=== PATIENT | male | born 1955 | race Caucasian/White ===

== ENCOUNTER → 2016-06-04 | Outpatient (CLI) | payer BC, MEDICAID ==
[~2016-06-04] MED LIST: AUGM500T7 PO; BACT800T5 PO; CIPR-9 PO; CLIN1CAP5 PO; GABA300C5 PO; GLIP10TA6 PO; LISI-515 PO; LORA1TAB12 PO; LOTE20TA PO; METF1000 PO; MULTTAB67 PO; MUPI2OIN TOPICAL; PERC5TAB12 PO; PRAV80TA2 PO; TAMS5CAP PO; VITA400C28
[2016-06-04 11:01] LABS: BASOPHIL % 0.6 % (0.0-2.0); EOSINOPHIL # 0.1 TH/MM3 (0-0.4); EOSINOPHIL % 1.3 % (0.0-4.0); HEMATOCRIT 38.8 % (39.0-51.0); HEMO FLAGS DIFF FINAL; LYMPH % 34.5 % (9.0-44.0); LYMPHOCYTE # 2.4 TH/MM3 (1.0-4.8); MEAN CELL VOLUME 92.1 FL (80.0-100.0); MEAN CORPUSCULAR HEMOGLOBIN 31.6 PG (27.0-34.0); MEAN CORPUSCULAR HGB CONC 34.3 % (32.0-36.0); MONO % 7.2 % (0.0-8.0); NEUT % 56.4 % (16.0-70.0); PLATELET COUNT 212 TH/MM3 (150-450); RED BLOOD COUNT 4.21 MIL/MM3 (4.50-5.90); RED CELL DISTRIBUTION WIDTH 12.6 % (11.6-17.2)
--- NOTE | 2016-06-04 14:36 | EKG ---
Date Performed: 06/04/2016 Time Performed: 11:23:32 PTAGE: 60 years EKG: Sinus rhythm LEFT ANTERIOR FASCICULAR BLOCK NONSPECIFIC T-WAVE ABNORMALITY ABNORMAL ECG Since PREVIOUS TRACING , no significant change noted DOCTOR: Leonor Adler Interpretating Date/Time 06/04/2016 14:27:46
== END ==
LOC: CPRE 10:21
PROVIDERS: ATTEND Urology
DX: Z01.812 Encounter for preprocedural laboratory examination (principal); Z01.810 Encounter for preprocedural cardiovascular examination; N40.1 Benign prostatic hyperplasia with lower urinary tract symptoms; R97.20 Elevated prostate specific antigen [PSA]; I44.4 Left anterior fascicular block
CPT/HCPCS: 36415; 85025; 93005

== ENCOUNTER 2016-06-07 12:16 | Emergency (ER) | payer MEDICAID, OTHER ==
[~2016-06-07] VITALS: Ht 177.8 cm; Wt 102.0 kg
[~2016-06-07 12:16] MED LIST changes: -AUGM500T7 PO; -BACT800T5 PO; -CIPR-9 PO; -CLIN1CAP5 PO; -LORA1TAB12 PO; -LOTE20TA PO; -MUPI2OIN TOPICAL; -PERC5TAB12 PO; -TAMS5CAP PO; -VITA400C28
[2016-06-07 12:18] VITALS: BP 136/77; PULSE 66; RESP 12; TEMP 98.1; O2SAT 97
--- NOTE | 2016-06-07 12:56 | PD ---
HPI Chief Complaint: Skin Problem Time Seen by Provider: 12:50 Travel History International Travel<30 days: No Contact w/Intl Traveler<30days: No Traveled to known affect area: No History of Present Illness HPI Patient is a 60-year-old male who presents emergency from for evaluation of a rash to his left and right forearms. Patient states rashes been there for 2 weeks, they start out as a small pimple, get larger and more erythematous, break open and then crust over. He denies any fever, chills, nausea, vomiting, headache, shortness of breath, chest pain. He does report elevated blood sugar readings at home between 3-400 at times. He currently takes metformin and glipizide for his type 2 diabetes. He reports a history of MRSA infection. He has not seen his primary care provider for this problem. [facility] Past Medical History Cancer: No Cardiovascular Problems: Yes High Cholesterol: Yes Diabetes: Yes Patient Takes Glucophage: Yes Diminished Hearing: No Endocrine: Yes Genitourinary: Yes (Anal skin tag removal) Hypertension: Yes Immune Disorder: No Musculoskeletal: No Neurologic: No Psychiatric: No Reproductive: No Respiratory: No Seizures: No Past Surgical History Other Surgery: Yes (ANAL TAGS, DEBRIDEMENT DIABETIC ULCERS) Social History Alcohol Use: Yes Tobacco Use: No (QUIT 3 MONTHS AGO) Substance Use: Yes (MARIJUANA OCCAS.) Allergies-Medications (Allergen,Severity, Reaction): Coded Allergies: Coconut (Verified Allergy, Severe, Swelling lips, throat, 06/07/16) *MDRO Multi-Drug Resistant Organism (Verified Adverse Reaction, Unknown, ) MRSA (wound) - 04/2014 Reported Meds & Prescriptions Reported Meds & Active Scripts Active Reported Lisinopril 20 Mg Tab 20 Mg PO DAILY Multiple Vitamin 1 Tab 1 Tab PO DAILY Pravastatin 80 Mg Tab 80 Mg PO DAILY Metformin (Metformin HCl) 1,000 Mg Tab 1,000 Mg PO BIDPC With meals Gabapentin 300 Mg Cap 300 Mg PO BID Glipizide 10 Mg Tab 10 Mg PO BIDAC Take 30 minutes before a meal Review of Systems Except as stated in HPI: all other systems reviewed are Neg General / Constitutional: No: Fever, Chills Skin: Positive Rash, Positive Change in Pigmentation, Positive Lesions Physical Exam Narrative GENERAL: Well-nourished, well-developed patient. SKIN: Warm and dry. There are several small vesicular lesions to the left forearm, with surrounding erythema, with scattered yellow crusted lesions. More so on the left forearm. There is only one crusted lesion in one vesicular lesion on the right forearm. HEAD: Normocephalic. EYES: No scleral icterus. No injection or drainage. NECK: Supple, trachea midline. No JVD or lymphadenopathy. CARDIOVASCULAR: Regular rate and rhythm without murmurs, gallops, or rubs. RESPIRATORY: Breath sounds equal bilaterally. No accessory muscle use. GASTROINTESTINAL: Abdomen soft, non-tender, nondistended. MUSCULOSKELETAL: No cyanosis, or edema. BACK: Nontender without obvious deformity. No CVA tenderness. Data Data Last Documented VS Vital Signs Date Time Temp Pulse Resp B/P Pulse Ox O2 Delivery O2 Flow Rate FiO2 06/07/16 12:18 98.1 66 12 136/77 97 Room Air Orders Wound Culture And Gram Stain (06/07/16 12:51) Clindamycin (Cleocin) (06/07/16 13:00) Sulfamet-Trimeth Ds 800-160 Mg (Bactrim (06/07/16 13:00) MDM Medical Decision Making Medical Screen Exam Complete: Yes Emergency Medical Condition: Yes Interpretation(s) Vital Signs Date Time Temp Pulse Resp B/P Pulse Ox O2 Delivery O2 Flow Rate FiO2 06/07/16 12:18 98.1 66 12 136/77 97 Room Air Differential Diagnosis Impetigo versus cellulitis versus abscess versus folliculitis versus other Narrative Course Patient is a 60-year-old male who presents to the emergency department for evaluation of skin lesions to his forearms that have been present for approximately 2 weeks. Patient did not see his primary care provider for this problem. He is afebrile, his vital signs are stable. He has a history of MRSA infection in a wound in the past. He reports no other difficulties at this time. Wound culture ordered Clindamycin and Bactrim will be given 1 dose now. Infection appears localized to forearms, patient was advised to avoid scratching spread of infection. He was encouraged to apply mupirocin ointment twice daily and apply a nonocclusive dressing. Patient's blood sugar is 257 in the emergency department. Patient was encouraged to continue to monitor his blood sugars, if blood sugars are uncontrolled he was advised to return to emergency department or follow-up with his primary care provider. Patient was instructed on wound care. Patient verbalized understanding of instructions as well as need for close follow-up. Patient is stable for discharge. Diagnosis Primary Impression: Cellulitis Qualified Code: L03.119 - Cellulitis of upper extremity, unspecified laterality Additional Impression: History of MRSA infection Referrals: Primary Care Physician 2 days Patient Instructions: Cellulitis (ED), General Instructions Additional Instructions: Follow-up with your primary doctor in 24-48 hours Return to emergency department for any new or worsening symptoms Complete full course of antibiotics as directed, even if you begin to feel better Keep the lesions clean, dry, apply topical antibiotic ointment and cover with nonocclusive dressing Med/Other Pt SpecificInfo: Prescription(s) given Scripts Mupirocin Topical 2 % Oint1 Applic TOPICAL BID 14 Days Ref 1 Prov:Sandi Gibson 06/07/16 Sulfamethoxazole-Trimethoprim (Bactrim DS)800-160 Mg Tab1 Tab PO BID #20 TAB Ref 0 Prov:Sandi Gibson 06/07/16 Clindamycin 150 Mg Cep311 Mg PO Q6H 10 Days Ref 0 Prov:Sandi Gibson 06/07/16 Disposition: 01 DISCHARGE HOME Condition: Stable Sandi Gibson Jun 07, 2016 12:56
[2016-06-07] MEDS ORDERED: CLINDAMYCIN 150 MG CAP PO ONE (13:00)
[2016-06-07] MEDS ORDERED: SULFAMETHOXAZOLE-TRIMETHOPRIM DS 800-160 MG TAB PO ONE (13:00)
--- NOTE | 2016-06-07 13:28 | PD ---
Physical Exam Narrative Patient is seen and examined with my administrative assistant office manager. Data Data Last Documented VS Vital Signs Date Time Temp Pulse Resp B/P Pulse Ox O2 Delivery O2 Flow Rate FiO2 06/07/16 14:00 70 14 130/64 97 Room Air 06/07/16 12:18 98.1 Orders Wound Culture And Gram Stain (06/07/16 12:51) Clindamycin (Cleocin) (06/07/16 13:00) Sulfamet-Trimeth Ds 800-160 Mg (Bactrim (06/07/16 13:00) MDM Supervised Visit with RUSSELL: Yes Scripts Mupirocin Topical 2 % Oint1 Applic TOPICAL BID 14 Days Ref 1 Prov:Sandi Gibson 06/07/16 Sulfamethoxazole-Trimethoprim (Bactrim DS)800-160 Mg Tab1 Tab PO BID #20 TAB Ref 0 Prov:Sandi Gibson 06/07/16 Clindamycin 150 Mg Qfi302 Mg PO Q6H 10 Days Ref 0 Prov:Sandi Gibson 06/07/16 John Segura MD Jun 07, 2016 13:28
[2016-06-07] MEDS ORDERED: CLIN1CAP5 PO (13:50)
[2016-06-07] MEDS ORDERED: MUPI2OIN TOPICAL (13:50)
[2016-06-07] MEDS ORDERED: BACT800T5 PO (13:50)
[2016-06-07 14:00] VITALS: BP 130/64; PULSE 70; RESP 14; O2SAT 97
[2016-10-04] MEDS ORDERED: AUGM500T7 PO (10:03)
[2016-10-04] MEDS ORDERED: PERC5TAB12 PO (10:03)
== END 2016-06-07 14:09 | disposition home or self-care (01) ==
LOC: NEPE 12:16
DX: L03.119 Cellulitis of unspecified part of limb (principal); B95.62 Methicillin resistant Staphylococcus aureus infection as the cause of diseases classified elsewhere
CPT/HCPCS: 86403; 87070; 87077; 87186; 99284

== ENCOUNTER → 2016-07-09 | Day surgery (SDC) | payer BC, MEDICAID ==
[~2016-07-09] VITALS: Ht 177.8 cm; Wt 102.1 kg
[~2016-07-09] MED LIST changes: +AUGM500T7 PO; +BACT800T5 PO; +CIPROFLOXACIN/DEXT 400 MG/200 ML IV SCH; +CLIN1CAP5 PO; +INSULIN HUMAN REGULAR 1,000 UNITS/10 ML VIAL SQ PRN; +LACTATED RINGER'S 1000 ML IV SCH; +METOPROLOL TARTRATE 25 MG TAB PO PRN; +MUPI2OIN TOPICAL; +PERC5TAB12 PO; +SODIUM CHLORID 0.9% 500 ML IV SCH
[2016-07-09 07:07] VITALS: BP 136/77; PULSE 68; RESP 18; TEMP 98; O2SAT 98
[2016-07-09 07:25] LABS: AUTOMATED NEUTROPHIL # 3.4 TH/MM3 (1.8-7.7); BASOPHIL # 0.1 TH/MM3 (0-0.2); EOSINOPHIL # 0.1 TH/MM3 (0-0.4); HEMATOCRIT 38.4 % (39.0-51.0); HEMO FLAGS DIFF FINAL; LYMPH % 35.4 % (9.0-44.0); LYMPHOCYTE # 2.2 TH/MM3 (1.0-4.8); MEAN CELL VOLUME 91.2 FL (80.0-100.0); MEAN CORPUSCULAR HEMOGLOBIN 31.7 PG (27.0-34.0); MEAN CORPUSCULAR HGB CONC 34.7 % (32.0-36.0); MONO % 7.7 % (0.0-8.0); NEUT % 53.9 % (16.0-70.0); PLATELET COUNT 202 TH/MM3 (150-450); RED BLOOD COUNT 4.22 MIL/MM3 (4.50-5.90); RED CELL DISTRIBUTION WIDTH 13.5 % (11.6-17.2); WHITE BLOOD COUNT 6.3 TH/MM3 (4.0-11.0)
[2016-07-09 12:43] LABS: C. DIFF EPI 027 PRESUMPTIVE NEGATIVE (NEGATIVE); C. DIFF TOXIN PCR NEGATIVE (NEGATIVE)
== END | disposition home or self-care (01) ==
LOC: HSDC 06:20
PROVIDERS: ATTEND Urology
DX: R97.20 Elevated prostate specific antigen [PSA] (principal)
CPT/HCPCS: 85025; 87493; 99211; J7120; G0463

== ENCOUNTER → 2016-08-13 | Day surgery (SDC) | payer MEDICAID, OTHER ==
[~2016-08-13] VITALS: Ht 177.8 cm; Wt 101.9 kg
[~2016-08-13] MED LIST changes: -BACT800T5 PO; +CIPROFLOXACIN 400 MG PREMIX 200 ML ONE; +CIPROFLOXACIN/DEXT 400 MG/200 ML IV ONE; -CIPROFLOXACIN/DEXT 400 MG/200 ML IV SCH; -CLIN1CAP5 PO; +FAMOTIDINE 20 MG/2 ML VIAL ONE; +MIDAZOLAM HCL 5 MG/5 ML VIAL ONE; -MUPI2OIN TOPICAL; +PROPOFOL 200 MG/20 ML AMP IV ONE
[2016-08-13 07:02] VITALS: BP 129/82; PULSE 68; RESP 16; TEMP 97.1; O2SAT 96
[2016-08-13 07:30] LABS: AUTOMATED NEUTROPHIL # 3.2 TH/MM3 (1.8-7.7); BASOPHIL # 0.1 TH/MM3 (0-0.2); BASOPHIL % 0.9 % (0.0-2.0); EOSINOPHIL # 0.2 TH/MM3 (0-0.4); EOSINOPHIL % 2.8 % (0.0-4.0); HEMATOCRIT 41.4 % (39.0-51.0); HEMO FLAGS DIFF FINAL; LYMPH % 38.8 % (9.0-44.0); LYMPHOCYTE # 2.5 TH/MM3 (1.0-4.8); MEAN CELL VOLUME 91.5 FL (80.0-100.0); MEAN CORPUSCULAR HEMOGLOBIN 31.1 PG (27.0-34.0); MEAN CORPUSCULAR HGB CONC 33.9 % (32.0-36.0); MONO % 7.7 % (0.0-8.0); NEUT % 49.8 % (16.0-70.0); PLATELET COUNT 171 TH/MM3 (150-450); RED BLOOD COUNT 4.53 MIL/MM3 (4.50-5.90); WHITE BLOOD COUNT 6.5 TH/MM3 (4.0-11.0)
[2016-08-13 07:34] LABS: APTT (PATIENT) 22.9 SEC (24.3-30.1); INTERNATIONAL NORMALIZED RATIO 0.9 RATIO; PROTHROMBIN TIME - PATIENT 10.4 SEC (9.8-11.6)
--- NOTE | 2016-08-13 08:27 | PD.OP ---
Operative Report Date of Surgery: Aug 13, 2016 Preoperative Diagnosis: Elevated PSA Postoperative Diagnosis: Same Procedure: TRUS with PNBX Anesthesia: MAC Surgeon: Leodan Bolton Ice Bag Assembler(s): none Resident Surgeon: none Operation and Findings: 60-year-old male with findings of an elevated PSA. PSA went from 9.2 to 13.3 within the last year. Today presents for prostate needle biopsy. He denies any family history of prostate cancer. Patient has taken his enema and has been taking his Cipro preoperatively. Risk and benefits were discussed and he is willing to proceed. Patient was brought to the operating room identify myself as Maksim Loyd. He was placed in the left lateral recumbent position and received preprocedure antibiotics. Mac anesthesia was administered. Ultrasound probe was inserted into the rectum and volumetric measurements of the prostate were taken. Calcifications were noted within the gland but no hypoechoic lesions were identified. Prostatic volume was 46.58 cm . 20 prostate core biopsies were taken. He tolerated the procedure well and was awoken and taken to the recovery room in stable condition. He will follow- up in one week to review his pathology results. Leodan Bolton DO Aug 13, 2016 08:27
[2016-08-13 09:05] VITALS: BP 115/65; PULSE 77; RESP 18; TEMP 99.2; O2SAT 97
== END | disposition home or self-care (01) ==
LOC: HSDC 06:09
PROVIDERS: ATTEND Urology
DX: C61 Malignant neoplasm of prostate (principal); N40.1 Benign prostatic hyperplasia with lower urinary tract symptoms; I10 Essential (primary) hypertension; E11.9 Type 2 diabetes mellitus without complications
CPT/HCPCS: 00902; 55700; 82948; 85025; 85610; 85730; 88305; 92950; J0744; J2250; J7120; 88307

== ENCOUNTER 2016-08-27 14:17 | Emergency (ER) | payer MEDICAID, OTHER ==
[~2016-08-27] VITALS: Ht 177.8 cm; Wt 100.0 kg
[~2016-08-27 14:17] MED LIST changes: -AUGM500T7 PO; -CIPROFLOXACIN 400 MG PREMIX 200 ML ONE; -CIPROFLOXACIN/DEXT 400 MG/200 ML IV ONE; -FAMOTIDINE 20 MG/2 ML VIAL ONE; -INSULIN HUMAN REGULAR 1,000 UNITS/10 ML VIAL SQ PRN; -LACTATED RINGER'S 1000 ML IV SCH; -METOPROLOL TARTRATE 25 MG TAB PO PRN; -MIDAZOLAM HCL 5 MG/5 ML VIAL ONE; -PERC5TAB12 PO; -PROPOFOL 200 MG/20 ML AMP IV ONE; -SODIUM CHLORID 0.9% 500 ML IV SCH
[2016-08-27 14:19] VITALS: BP 140/77; PULSE 72; RESP 20; TEMP 97.8; O2SAT 96
[2016-08-27] MEDS ORDERED: SODIUM CHLOR 0.9% 1000 ML INJ 1,000 ML IV SCH (17:29)
[2016-08-27] MEDS ORDERED: SODIUM CHLORIDE 0.9% FLUSH 10 ML FLUSH IV FLUSH PRN (17:30)
--- NOTE | 2016-08-27 17:35 | PD ---
HPI Chief Complaint: Abdominal Pain Time Seen by Provider: 17:35 Travel History International Travel<30 days: No Contact w/Intl Traveler<30days: No Traveled to known affect area: No History of Present Illness HPI 60-year-old male presents to the emergency department for evaluation of diarrhea and abdominal cramping for one week. Patient states that he's had loose frequent stools for the past week and experiences lower abdominal cramping just before he has a bowel movement. States otherwise he has no abdominal pain. Denies any fever, chills, nausea, vomiting, lightheadedness, bloody stool. States that he thinks he may have C. difficile. States that 2 months ago after being prescribed clindamycin for cellulitis he developed the same symptoms with diarrhea and abdominal cramping and his urologist took a stool sample and told him that he had C. difficile and prescribed him Flagyl. States that after taking the Flagyl his symptoms resolved until now. States that about 10 days ago he had a prostate biopsy and was given Cipro for several days and developed the diarrhea began after taking this medication. No prior abdominal surgeries. No other complaints. PFSH Past Medical History Cancer: Yes Cardiovascular Problems: Yes High Cholesterol: Yes Diabetes: Yes Diminished Hearing: No Endocrine: Yes Genitourinary: Yes (Anal skin tag removal) Hepatitis: No Hiatal Hernia: No Hypertension: Yes Immune Disorder: No Musculoskeletal: No Neurologic: No (NEUROPATHY IN FEET) Psychiatric: Yes (DEPRESSION) Reproductive: Yes (HIGH PSA) Respiratory: No Seizures: No Thyroid Disease: No Past Surgical History Abdominal Surgery: No AICD: No Cardiac Surgery: No Ear Surgery: No Endocrine Surgery: No Eye Surgery: Yes (CATARACT BILAT. 2016) Genitourinary Surgery: No Gynecologic Surgery: No Joint Replacement: No Oral Surgery: No Pacemaker: No Thoracic Surgery: No Other Surgery: Yes (ANAL TAGS, DEBRIDEMENT DIABETIC ULCERS) Social History Alcohol Use: Yes Tobacco Use: No (QUIT 3 MONTHS AGO) Substance Use: Yes (MARIJUANA OCCAS.) Allergies-Medications (Allergen,Severity, Reaction): Coded Allergies: Coconut (Verified Allergy, Severe, Swelling lips, throat, 08/27/16) *MDRO Multi-Drug Resistant Organism (Verified Adverse Reaction, Unknown, ) MRSA (wound) - 04/2014; MRSA (arm)-01/09/17 Reported Meds & Prescriptions Reported Meds & Active Scripts Active Reported Lisinopril 20 Mg Tab 40 Mg PO DAILY Multiple Vitamin 1 Tab 1 Tab PO DAILY Pravastatin 80 Mg Tab 80 Mg PO DAILY Metformin (Metformin HCl) 1,000 Mg Tab 1,000 Mg PO BIDPC With meals Gabapentin 300 Mg Cap 300 Mg PO BID Glipizide 10 Mg Tab 10 Mg PO BIDAC Take 30 minutes before a meal Review of Systems Except as stated in HPI: all other systems reviewed are Neg Physical Exam Narrative GENERAL: Well-nourished and well-developed pleasant patient in no acute distress who is nontoxic appearing. SKIN: Warm and dry. HEAD: Normocephalic and atraumatic. EYES: No injection, drainage, or hyphema noted. PERRLA. EOMI. ENT: No nasal drainage noted. Oropharynx is clear. NECK: Supple and the trachea is midline. CARDIOVASCULAR: Regular rate and rhythm. RESPIRATORY: Breath sounds are equal bilaterally with no accessory muscle use, wheezing, rhonchi, or crackles. GASTROINTESTINAL: Abdomen is soft, non-tender, and nondistended. No rebound tenderness or guarding. MUSCULOSKELETAL: No obvious deformities, swelling, cyanosis, or ecchymosis is present throughout the upper and lower extremities. Patient has full range of motion without any signs of neurovascular compromise. NEUROLOGICAL: Awake, alert, and oriented. Normal speech and gait. Cranial nerves are grossly intact. Data Data Last Documented VS Vital Signs Date Time Temp Pulse Resp B/P Pulse Ox O2 Delivery O2 Flow Rate FiO2 08/27/16 14:19 97.8 72 20 140/77 96 Room Air Orders Complete Blood Count With Diff (08/27/16 17:29) Comprehensive Metabolic Panel (08/27/16 17:29) Lipase (08/27/16 17:29) Iv Access Insert/Monitor (08/27/16 17:29) Ecg Monitoring (08/27/16 17:29) Oximetry (08/27/16 17:29) Sodium Chlor 0.9% 1000 Ml Inj (Ns 1000 M (08/27/16 17:29) Sodium Chloride 0.9% Flush (Ns Flush) (08/27/16 17:30) C Diff Toxin Pcr (08/27/16 17:50) Stool Afb Culture And Stain (08/27/16 17:50) Labs Laboratory Tests Test 08/27/16 18:11 White Blood Count 6.1 TH/MM3 Red Blood Count 4.66 MIL/MM3 Hemoglobin 14.8 GM/DL Hematocrit 43.1 % Mean Corpuscular Volume 92.6 FL Mean Corpuscular Hemoglobin 31.7 PG Mean Corpuscular Hemoglobin 34.2 % Concent Red Cell Distribution Width 13.7 % Platelet Count 199 TH/MM3 Mean Platelet Volume 8.9 FL Neutrophils (%) (Auto) 45.9 % Lymphocytes (%) (Auto) 44.8 % Monocytes (%) (Auto) 6.4 % Eosinophils (%) (Auto) 2.3 % Basophils (%) (Auto) 0.6 % Neutrophils # (Auto) 2.8 TH/MM3 Lymphocytes # (Auto) 2.7 TH/MM3 Monocytes # (Auto) 0.4 TH/MM3 Eosinophils # (Auto) 0.1 TH/MM3 Basophils # (Auto) 0.0 TH/MM3 CBC Comment DIFF FINAL Differential Comment Sodium Level 139 MEQ/L Potassium Level 4.6 MEQ/L Chloride Level 104 MEQ/L Carbon Dioxide Level 28.8 MEQ/L Anion Gap 6 MEQ/L Blood Urea Nitrogen 11 MG/DL Creatinine 0.98 MG/DL Estimat Glomerular Filtration 78 ML/MIN Rate Random Glucose 240 MG/DL Calcium Level 8.9 MG/DL Total Bilirubin 0.4 MG/DL Aspartate Amino Transf 24 U/L (AST/SGOT) Alanine Aminotransferase 38 U/L (ALT/SGPT) Alkaline Phosphatase 76 U/L Total Protein 7.5 GM/DL Albumin 3.8 GM/DL Lipase 135 U/L [facility] Medical Decision Making Medical Screen Exam Complete: Yes Emergency Medical Condition: Yes Differential Diagnosis Diarrhea versus electrolyte abnormality versus C. difficile Narrative Course 60-year-old male presents to the emergency department for evaluation of diarrhea for one week after taking antibiotics. Patient is afebrile, vital signs are stable. Abdominal examination is benign. Patient appears well overall. IV access is obtained, labs been drawn and sent. Stool study has been ordered and is pending. I did review the EMR which shows that one month ago the patient had a stool study that was negative for C. difficile. CBC is unremarkable. CMP shows hyperglycemia with a glucose of 240 but is otherwise unremarkable. Patient is unable to produce a stool specimen here in the emergency department. His white count is within normal limits and he has not had any episodes of diarrhea while here in the ED for the past 3-4 hours. I am low suspicion for C. difficile. I suspect the patient has diarrhea as an adverse effect of antibiotic therapy or has a viral illness. Discussed supportive care and advised follow-up with his PCP. Patient verbalizes understanding and agreement with treatment plan. I discussed the case with my attending physician Dr. Owens who is aware of the patients history, physical examination findings, and treatment plan. Diagnosis Primary Impression: Diarrhea Qualified Code: R19.7 - Diarrhea, unspecified type Referrals: Primary Care Physician Patient Instructions: Acute Diarrhea (ED), General Instructions Additional Instructions: Follow BRAT diet. Follow-up with your Primary Care Physician. Return to the ED for any acute worsening of symptoms. Med/Other Pt SpecificInfo: No Change to Meds Disposition: 01 DISCHARGE HOME Condition: Stable Mary Moe Aug 27, 2016 17:35
[2016-08-27 18:29] LABS: AUTOMATED NEUTROPHIL # 2.8 TH/MM3 (1.8-7.7); BASOPHIL % 0.6 % (0.0-2.0); EOSINOPHIL # 0.1 TH/MM3 (0-0.4); EOSINOPHIL % 2.3 % (0.0-4.0); HEMATOCRIT 43.1 % (39.0-51.0); HEMO FLAGS DIFF FINAL; LYMPH % 44.8 % (9.0-44.0); LYMPHOCYTE # 2.7 TH/MM3 (1.0-4.8); MEAN CELL VOLUME 92.6 FL (80.0-100.0); MEAN CORPUSCULAR HEMOGLOBIN 31.7 PG (27.0-34.0); MEAN CORPUSCULAR HGB CONC 34.2 % (32.0-36.0); MONO % 6.4 % (0.0-8.0); NEUT % 45.9 % (16.0-70.0); PLATELET COUNT 199 TH/MM3 (150-450); RED BLOOD COUNT 4.66 MIL/MM3 (4.50-5.90); RED CELL DISTRIBUTION WIDTH 13.7 % (11.6-17.2); WHITE BLOOD COUNT 6.1 TH/MM3 (4.0-11.0)
[2016-08-27 19:12] LABS: ALKALINE PHOSPHATASE 76 U/L (45-117); TOTAL BILIRUBIN ADULT 0.4 MG/DL (0.2-1.0)
[2016-08-27 19:27] LABS: ALT (GPT) 38 U/L (12-78); ANION GAP 6 MEQ/L (5-15); AST (GOT) 24 U/L (15-37); BICARBONATE 28.8 MEQ/L (21.0-32.0); BLOOD UREA NITROGEN 11 MG/DL (7-18); CHLORIDE 104 MEQ/L (98-107); GLOMERULAR FILTRATION RATE 78 ML/MIN (>89); SODIUM (NA) 139 MEQ/L (136-145)
[2016-08-27 20:04] LABS: POTASSIUM 4.6 MEQ/L (3.5-5.1)
[2016-08-27 20:21] VITALS: BP 139/77; PULSE 68; RESP 18; O2SAT 100; O2SAT 97
[2016-10-04] MEDS ORDERED: AUGM500T7 PO (10:03)
[2016-10-04] MEDS ORDERED: PERC5TAB12 PO (10:03)
== END 2016-08-27 20:33 | disposition home or self-care (01) ==
LOC: NEPA 14:17
DX: R19.7 Diarrhea, unspecified (principal)
CPT/HCPCS: 80053; 83690; 85025; 87015; 99284; J7030

== ENCOUNTER → 2016-09-23 | Outpatient (CLI) | payer MEDICAID, OTHER ==
[~2016-09-23] MED LIST changes: +AUGM500T7 PO; +PERC5TAB12 PO
--- NOTE | 2016-09-23 13:40 | RADRPT ---
EXAM DATE/TIME: 09/23/2016 12:29 [facility] COMPARISON: No previous studies available for comparison. PRIOR BONE SCANS: No correlative bone scan available for comparison. INDICATIONS : Newly diagnosed prostate cancer. Metastatic disease. DOSE: 30.1 mCi Tc99m MDP IV MEDICAL HISTORY : Diabetes mellitus type 2. Hypertension. SURGICAL HISTORY : Right foot. Left hand. ENCOUNTER: Initial ACUITY: 1 day PAIN SCALE: 0/10 LOCATION: upper quadrant TECHNIQUE: Three hours post intravenous administration of radiotracer, whole body bone scan imaging was performe d. FINDINGS: There is no evidence for any abnormal uptake in the axial or appendicular skeleton to suggest metasta tic disease. The blood pool portion of the exam is unremarkable. IMPRESSION: Unremarkable study and no evidence for metastatic disease. Leonie Donnelly MD on September 23, 2016 at 13:32 Board Certified Radiologist. This report was verified electronically.
== END ==
LOC: HRAD 08:12
PROVIDERS: ATTEND Urology
DX: C61 Malignant neoplasm of prostate (principal)
CPT/HCPCS: 36415; 78306; 82565; 84520; A9503

== ENCOUNTER → 2016-09-24 | Outpatient (CLI) | payer MEDICAID, OTHER ==
[~2016-09-24] MED LIST changes: +GADODIAMIDE PF 287 MG/ML 20 ML VIAL (for RAD MRI) IV ONE
--- NOTE | 2016-09-24 09:34 | RADRPT ---
EXAM DATE/TIME: 09/24/2016 09:05 [facility] COMPARISON: BONE SCAN (WHOLE BODY), September 23, 2016, 12:29. INDICATIONS : Newly diagnosed prostate cancer. ORAL CONTRAST: No oral contrast ingested. RADIATION DOSE: 16.22 CTDIvol (mGy) MEDICAL HISTORY : None SURGICAL HISTORY : None. ENCOUNTER: Initial ACUITY: 2 weeks PAIN SCALE: 0/10 LOCATION: Abdomen TECHNIQUE: Volumetric scanning of the abdomen and pelvis was performed. Using automated exposure control and ad justment of the mA and/or kV according to patient size, radiation dose was kept as low as reasonably achievable to obtain optimal diagnostic quality images. FINDINGS: LOWER LUNGS: The visualized lower lungs are clear. LIVER: Homogeneous density without lesion. There is no dilation of the biliary tree. No calcified gallston es. SPLEEN: Normal size without lesion. PANCREAS: Within normal limits. KIDNEYS: Normal in size and shape. There is no mass, stone, or hydronephrosis. There is mild high density con trast in the collecting systems, ureters and bladder. ADRENAL GLANDS: Within normal limits. VASCULAR: There is no aortic aneurysm. BOWEL/MESENTERY: The stomach, small bowel, and colon demonstrate no acute abnormality. There is no free intraperitone al air or fluid. ABDOMINAL WALL: Within normal limits. RETROPERITONEUM: There is no lymphadenopathy. BLADDER: No wall thickening or mass. REPRODUCTIVE: The prostate gland is normal in size and shape. The seminal vesicles are symmetric. No pelvic adenopa thy. INGUINAL: There is no lymphadenopathy or hernia. MUSCULOSKELETAL: Within normal limits for patient age. CONCLUSION: 1. Prostate gland is unremarkable in appearance with no visualized tumor or adenopathy. 2. The remainder of the exam is unremarkable for age. Saurabh Schmidt MD on September 24, 2016 at 9:30 Board Certified Radiologist. This report was verified electronically.
--- NOTE | 2016-09-24 11:26 | RADRPT ---
EXAM DATE/TIME: 09/24/2016 07:52 [facility] COMPARISON: BONE SCAN (WHOLE BODY), September 23, 2016, 12:29. CT ABDOMEN & PELVIS W/O CONTRAST, September 24, 2016, 9:0 5. INDICATIONS : Prostate cancer. CONTRAST: 20 cc Omniscan (gadodiamide) IV MEDICAL HISTORY : Diabetes mellitus type 2. Hypertension. Carcinoma, prostate. SURGICAL HISTORY : anal tags, rt hand pins, rt foot ulcers, PROSTATE BX JULY 2016 ENCOUNTER: Subsequent ACUITY: 2 months PAIN SCORE: 0/10 LOCATION: pelvis TECHNIQUE: Multiplanar, multisequence magnetic resonance imaging of the pelvis was performed. FINDINGS: PROSTATE: The prostate gland measures approximately 3.9 x 2.6 x 4.3 cm with an estimated volume of 23 cc. PERIPHERAL ZONE: No definite lesion is seen given the image quality. There is heterogeneous T2 signal. No gross extra prostatic extension of disease is identified. There is no abnormal bulge of the capsule. TRANSITION ZONE: There is a lesion identified in the right mid gland and apex medially measuring approximately 1.5 x 1 .4 cm. This area demonstrates moderate T2 hypointensity without a capsule and demonstrates decreased ADC signal and asymmetric early arterial enhancement. It is centered around the 9:00 position. It mora s not abut the pseudocapsule. No other transition zone lesion is seen. SEMINAL VESICLES: Decompressed but no signs of invasion are identified. OTHER: There is a geographic area of decreased T1 signal within the anterior left femoral head. This may rep resent an area of prior avascular necrosis. Otherwise, no concerning bone lesion is identified within the pelvis. No lymphadenopathy is identified within the pelvis. CONCLUSION: 1. Examination quality is not optimal. This examination was not performed on the appropriate MRI scan ner and our standard protocol was not utilized. Therefore, detection for primary tumor site is less t arellano optimal. If needed clinically we could reschedule the patient as an outpatient to have the examin ation repeated on a 3 Ellie scanner with the appropriate imaging protocol. 2. There is a single highly suspicious lesion identified in the right medial mid gland and apex trans ition zone. The lesion measures 1.5 x 1.4 cm and may correspond to the recently diagnosed adenocarcin liat. Suggest correlation with the pathology results. The lesion does not abut the capsule and there a re no findings to suggest extra prostatic extension of disease or invasion into any surrounding organ . 3. Additionally, no concerning lymph node or bone lesion is identified in the pelvis. Dank Byrnes MD on September 24, 2016 at 11:08 Board Certified Radiologist. This report was verified electronically.
== END ==
LOC: HRAD 06:45
PROVIDERS: ATTEND Urology
DX: C61 Malignant neoplasm of prostate (principal)
CPT/HCPCS: 72197; 74176; A9579

== ENCOUNTER → 2016-09-29 | Outpatient (CLI) | payer MEDICAID ==
[~2016-09-29] MED LIST changes: -GADODIAMIDE PF 287 MG/ML 20 ML VIAL (for RAD MRI) IV ONE
== END ==
LOC: CLAB 10:04
PROVIDERS: ATTEND Urology
DX: C61 Malignant neoplasm of prostate (principal)
CPT/HCPCS: 36415; 84153

== ENCOUNTER → 2017-05-13 | Outpatient (CLI) | payer MEDICARE, MEDICAID ==
[~2017-05-13] MED LIST changes: -AUGM500T7 PO; +BUSP10TA PO; -PERC5TAB12 PO
[2017-05-13 08:46] LABS: AUTOMATED NEUTROPHIL # 2.3 TH/MM3 (1.8-7.7); BASOPHIL # 0.1 TH/MM3 (0-0.2); BASOPHIL % 1.2 % (0.0-2.0); EOSINOPHIL # 0.2 TH/MM3 (0-0.4); EOSINOPHIL % 3.1 % (0.0-4.0); HEMATOCRIT 38.7 % (39.0-51.0); HEMO FLAGS DIFF FINAL; LYMPH % 45.7 % (9.0-44.0); LYMPHOCYTE # 2.5 TH/MM3 (1.0-4.8); MEAN CELL VOLUME 94.9 FL (80.0-100.0); MEAN CORPUSCULAR HEMOGLOBIN 33.2 PG (27.0-34.0); MONO % 8.6 % (0.0-8.0); NEUT % 41.4 % (16.0-70.0); PLATELET COUNT 213 TH/MM3 (150-450); RED BLOOD COUNT 4.07 MIL/MM3 (4.50-5.90); RED CELL DISTRIBUTION WIDTH 12.7 % (11.6-17.2); WHITE BLOOD COUNT 5.4 TH/MM3 (4.0-11.0)
[2017-05-13 19:21] LABS: ANION GAP 9 MEQ/L (5-15); BICARBONATE 23.9 MEQ/L (21.0-32.0); BLOOD UREA NITROGEN 13 MG/DL (7-18); CHLORIDE 105 MEQ/L (98-107); GLOMERULAR FILTRATION RATE 68 ML/MIN (>89); GLUCOSE,FASTING 238 MG/DL (74-99); POTASSIUM 4.4 MEQ/L (3.5-5.1); SODIUM (NA) 138 MEQ/L (136-145)
[2017-05-13 19:22] LABS: ALT (GPT) 31 U/L (12-78); AST (GOT) 13 U/L (15-37)
[2017-05-13 19:24] LABS: ALKALINE PHOSPHATASE 69 U/L (45-117); HDL CHOLESTEROL 59.6 MG/DL (40.0-60.0); LDL CHOLESTEROL 108 MG/DL (0-99); TOTAL BILIRUBIN ADULT 0.5 MG/DL (0.2-1.0)
[2017-05-13 21:15] LABS: HEMOGLOBIN A1a 1.5 %; HEMOGLOBIN A1b 1.3 %; HEMOGLOBIN Ao 76.2 %; HEMOGLOBIN F 2.3 %; HEMOGLOBIN LA1C 3.3 %
== END ==
LOC: CLAB 08:22
PROVIDERS: ATTEND Family Medicine
DX: E78.5 Hyperlipidemia, unspecified (principal); E11.65 Type 2 diabetes mellitus with hyperglycemia; I10 Essential (primary) hypertension
CPT/HCPCS: 36415; 80053; 80061; 83036; 85025

== ENCOUNTER → 2017-07-19 | Outpatient (CLI) | payer MEDICARE, MEDICAID | LOC: CLAB 09:32 | PROVIDERS: ATTEND Urology | DX: C61 Malignant neoplasm of prostate (principal) | CPT/HCPCS: 36415; 84153 ==

== ENCOUNTER → 2017-09-13 | Outpatient (CLI) | payer MEDICARE, MEDICAID ==
[2017-09-13 08:57] LABS: ALBUMIN 3.8 GM/DL (3.4-5.0); AST (GOT) 26 U/L (15-37); BICARBONATE 24.9 MEQ/L (21.0-32.0); BLOOD UREA NITROGEN 15 MG/DL (7-18); CALCIUM 8.8 MG/DL (8.5-10.1); CHLORIDE 108 MEQ/L (98-107); CREATININE 1.05 MG/DL (0.60-1.30); GLOMERULAR FILTRATION RATE 72 ML/MIN (>89); GLUCOSE,FASTING 137 MG/DL (74-99); SODIUM (NA) 141 MEQ/L (136-145)
[2017-09-13 08:58] LABS: CHOLESTEROL 157 MG/DL (120-200); TRIGLYCERIDES 137 MG/DL (42-150)
[2017-09-13 09:01] LABS: ALKALINE PHOSPHATASE 70 U/L (45-117); ALT (GPT) 36 U/L (12-78); CHOLESTEROL/ HDL RATIO 2.56 RATIO; HDL CHOLESTEROL 61.2 MG/DL (40.0-60.0); LDL CHOLESTEROL 68 MG/DL (0-99); TOTAL BILIRUBIN ADULT 0.4 MG/DL (0.2-1.0); TOTAL PROTEIN 7.6 GM/DL (6.4-8.2)
== END ==
LOC: CLAB 08:06
PROVIDERS: ATTEND Family Medicine
DX: I10 Essential (primary) hypertension (principal); E78.2 Mixed hyperlipidemia
CPT/HCPCS: 36415; 80053; 80061

== ENCOUNTER → 2017-09-19 | Outpatient (CLI) | payer MEDICARE, MEDICAID ==
[2017-09-19 09:39] LABS: ALBUMIN 3.8 GM/DL (3.4-5.0); AST (GOT) 22 U/L (15-37); BICARBONATE 27.1 MEQ/L (21.0-32.0); BLOOD UREA NITROGEN 13 MG/DL (7-18); CALCIUM 8.9 MG/DL (8.5-10.1); CHLORIDE 104 MEQ/L (98-107); CREATININE 1.01 MG/DL (0.60-1.30); GLOMERULAR FILTRATION RATE 75 ML/MIN (>89); GLUCOSE,FASTING 137 MG/DL (74-99); SODIUM (NA) 141 MEQ/L (136-145)
[2017-09-19 09:49] LABS: ALKALINE PHOSPHATASE 70 U/L (45-117); ALT (GPT) 32 U/L (12-78); CHOLESTEROL 162 MG/DL (120-200); HDL CHOLESTEROL 62.3 MG/DL (40.0-60.0); LDL CHOLESTEROL 68 MG/DL (0-99); TOTAL BILIRUBIN ADULT 0.3 MG/DL (0.2-1.0); TOTAL PROTEIN 7.4 GM/DL (6.4-8.2); TRIGLYCERIDES 158 MG/DL (42-150)
[2017-09-19 17:17] LABS: HEMOGLOBIN A1C 7.9 % (4.3-6.0)
== END ==
LOC: CLAB 08:34
PROVIDERS: ATTEND Family Medicine
DX: I10 Essential (primary) hypertension (principal); E11.49 Type 2 diabetes mellitus with other diabetic neurological complication; E78.2 Mixed hyperlipidemia
CPT/HCPCS: 36415; 80053; 80061; 83036

== ENCOUNTER → 2017-11-17 | Outpatient (CLI) | payer MEDICARE, MEDICAID ==
[2017-11-17 10:21] LABS: BILIRUBIN, URINE NEG (NEG); BLOOD, URINE NEG (NEG); GLUCOSE,URINE 50 mg/dL (NEG); KETONE, URINE NEG (NEG); MUCUS URINE FEW /lpf (OCC); NITRITE,URINE NEG (NEG); SQUAMOUS EPITHELIAL CELL URINE <1 /hpf (0-5); URINE COLOR YELLOW (YELLW/STRAW); URINE LEUKOCYTE ESTERASE TRACE (NEG)
== END ==
LOC: CLAB 09:26
PROVIDERS: ATTEND Urology
DX: C61 Malignant neoplasm of prostate (principal)
CPT/HCPCS: 81001